=== PATIENT | female | born 1965 | race African-American/Black ===

== ENCOUNTER 2018-02-12 12:53 | Inpatient (IN) | payer BC ==
[2018-02-12 13:56] VITALS: BMI 20.6
--- NOTE | 2018-02-12 20:25 | HP ---
CIWA Score - CIWA Score Nausea/Vomitin-Mild Nausea/No Vomiting Muscle Tremors: None Anxiety: 4-Mod. Anxious/Guarded Agitation: 4-Moderately Restless Paroxysmal Sweats: 3 Orientation: 0-Oriented Tacttile Disturbances: 1-Very Mild Itch/Numbness Auditory Disturbances: 0-None Visual Disturbances: 2-Mild Sensitivity Headache: 2-Mild CIWA-Ar Total Score: 17 Admission ROS S - HPI Chief Complaint: C/O WITHDRAWAL SX'S. SEEKING DETOX FROM ALCOHOL Allergies/Adverse Reactions: Allergies Allergy/AdvReac Type Severity Reaction Status Date / Time Penicillins Allergy Severe Hives Verified 02/12/18 16:20 History of Present Illness: 52 Y.O. FEMLAE WITH ALCOHOLISM AND CANNBIS DEPENDENCE HERE FOR DETOX. CLIENT IS KNOWN TO THIS PROGRAM. LAST HERE 2014. DENIES ANY DETOX SINCE. REPORTS LONGEST CLEAN TIME 10 YEARS. SELF REFERRED. C/O WITHDRAWAL SX'S, CIWA 17. DENIES SOB, C.P., SEIZURE D/O, AVH, PAST/PRESENT SI/HI. PMHX: CHRONIC R HIP PAIN, PSYCH: DENIES Exam Limitations: Physical Impairment (R THUMB SPRAIN) - Ebola screening Have you traveled outside of the country in the last 21 days: No Have you had contact with anyone from an Ebola affected area: No Have you been sick,other than usual withdrawal symptoms: No Do you have a fever: No - Review of Systems Constitutional: Chills, Loss of Appetite, Malaise (R HIP), Night Sweats, Unintentional Wgt. Loss EENT: reports: Dental Problems (MISSING TEETH) Respiratory: reports: No Symptoms reported Cardiac: reports: No Symptoms Reported GI: reports: Nausea, Poor Appetite, Poor Fluid Intake : reports: No Symptoms Reported Musculoskeletal: reports: Joint Pain (R HIP PAIN) Integumentary: reports: No Symptoms Reported Neuro: reports: No Symptoms reported Endocrine: reports: No Symptoms Reported Hematology: reports: No Symptoms Reported Psychiatric: reports: Agitated (IRRITABLE), Depressed Other Systems: Reviewed and Negative Patient History - Patient Medical History Hx Anemia: No Hx Asthma: No Hx Chronic Obstructive Pulmonary Disease (COPD): No Hx Cardiac Disorders: No Hx Hypertension: No HX Cerebrovascular Accident: No Hx Seizures: No Hx Diabetes: No Hx Gastrointestinal Disorders: No Hx Genitourinary Disorders: No Hx Sexually Transmitted Disorders: No Hx Renal Disease (ESRD): No Hx Thyroid Disease: No Hx Human Immunodeficiency Virus (HIV): No Hx Hepatitis C: No Hx Depression: Yes Hx Suicide Attempt: No Hx Schizophrenia: No - Patient Surgical History Past Surgical History: No - PPD History Previous Implant?: Yes Documented Results: Negative w/proof Implanted On Prior [facility] Admission?: Yes Date: 10/08/14 PPD to be Administered?: Yes - Reproductive History Patient is a Female of Child Bearing Age (11 -55 yrs old): Yes LMP comment: [place] [facility] [place] - Smoking Cessation Smoking history: Current every day smoker Have you smoked in the past 12 months: Yes Aproximately how many cigarettes per day: 4 If you are a former smoker, when did you quit?: SINCE 2000 Cigars Per Day: 0 Hx Chewing Tobacco Use: No Initiated information on smoking cessation: Yes 'Breaking Loose' booklet given: 02/12/18 - Substance & Tx. History Hx Alcohol Use: Yes Hx Substance Use: Yes Substance Use Type: Alcohol, Marijuana Hx Substance Use Treatment: Yes ([facility]) - Substances Abused Alcohol Route: Oral Frequency: Daily Amount used: 1 pint wine Age of first use: 13 Date of Last Use: 02/12/18 Marijuana/Hashish Route: Smoking Frequency: Daily Amount used: 3 blunts Age of first use: 9 Date of Last Use: 02/12/18 Family Disease History - Family Disease History Family Disease History: Diabetes: Mother, Other: Father (ALCOHOLISM-) Admission Physical Exam S - Vital Signs Vital Signs: Vital Signs - 24 hr 02/12/18 13:55 Temperature 97.7 F Pulse Rate 94 H Respiratory 18 Rate Blood Pressure 106/65 - Physical General Appearance: Yes: Appropriately Dressed, Mild Distress, Thin, Tremorous ( FELT), Irritable, Anxious HEENTM: Yes: EOMI, Normocephalic, Normal Voice, ZACH, Pharynx Normal, Other ( UPPER DENTURES AND MISSING LOWER TEETH) Respiratory: Yes: Chest Non-Tender, Lungs Clear, Normal Breath Sounds, No Respiratory Distress, No Accessory Muscle Use Neck: Yes: No masses,lesions,Nodules, Supple, Trachea in good position Breast: Yes: Breast Exam Deferred Cardiology: Yes: Regular Rhythm, Regular Rate, S1, S2 Abdominal: Yes: Normal Bowel Sounds, Non Tender, Soft Genitourinary: Yes: Other (NO C/O) Back: Yes: Normal Inspection Musculoskeletal: Yes: full range of Motion, Gait Steady Extremities: Yes: Normal Range of Motion, Non-Tender, Tremors (FELT) Neurological: Yes: store administrator II-XII NML intact, Alert, Depressed Affect Integumentary: Yes: Dry, Warm, Rash (DERMATITIS TO FACE) Lymphatic: Yes: Within Normal Limits - Diagnostic (1) Alcohol dependence with uncomplicated withdrawal Current Visit: Yes Status: Acute (2) Cannabis abuse, uncomplicated Current Visit: Yes Status: Chronic (3) Nicotine dependence Current Visit: Yes Status: Chronic Qualifiers: Nicotine product type: cigarettes Substance use status: uncomplicated Qualified Code(s): F17.210 - Nicotine dependence, cigarettes, uncomplicated (4) Substance induced mood disorder Current Visit: Yes Status: Suspected (5) At risk for dehydration due to poor fluid intake Current Visit: Yes Status: Acute Cleared for Admission [facility] - Detox or Rehab [facility] Level of Care: Medically Managed Detox Regimen/Protocol: Dre [facility]eared for Rehab Admission: No [facility] Breath Alcohol Content Breath Alcohol Content: 0 Urine Pregancy Test - Result Urine Test Results: Negative- NO Line Present Urine Drug Screen - Results Drug Screen Negative: No Urine Drug Screen Results: THC-Marijuana
[2018-02-12] MEDS ORDERED: ACETAMINOPHEN 325 MG TABLET (FP) PO PRN (20:30)
[2018-02-12] MEDS ORDERED: LOPERAMIDE HCL 2 MG CAPSULE PO PRN (20:30)
[2018-02-12] MEDS ORDERED: MENTHOL/PHENOL 1 EACH UD MM PRN (20:30)
[2018-02-12] MEDS ORDERED: MAGNESIUM CITRATE 300 ML BOTTLE PO PRN (20:30)
[2018-02-12] MEDS ORDERED: guaiFENesin/D-METHORPHAN HB 10 ML UNIT-DOSE CUPS PO PRN (20:30)
[2018-02-12] MEDS ORDERED: MAGNESIUM HYDROX 2400MG/30ML ORAL SUSPENSION 30 ML CUP PO PRN (20:30)
[2018-02-12] MEDS ORDERED: MAG HYDROX/AL HYDROX/SIMETH 30 ML UNIT-DOSE CUP PO PRN (20:30)
[2018-02-12] MEDS ORDERED: NICOTINE POLACRILEX 2 MG GUM BC PRN (20:30)
[2018-02-12] MEDS ORDERED: P-EPHED 60MG/TRIPROLIDI 2.5MG TABLET PO PRN (20:30)
[2018-02-12] MEDS ORDERED: IBUPROFEN 400 MG TABLET (FP) PO PRN (20:30)
[2018-02-12] MEDS ORDERED: chlordiazePOXIDE HCL 25 MG CAPSULE PO PRN (20:30)
[2018-02-12] MEDS: chlordiazePOXIDE HCL 25 MG CAPSULE PO SCH (23:36)
[2018-02-12] MEDS: MELATONIN 5 MG TABLETS PO PRN (23:37)
[2018-02-12] MEDS: THIAMINE HCL 100 MG TABLET (FP) PO SCH (23:50)
[2018-02-13] MEDS: chlordiazePOXIDE HCL 25 MG CAPSULE PO SCH ×3 (06:39→23:11)
[2018-02-13] MEDS: NICOTINE 14 MG/24 HOURS TOPICAL PATCH TD SCH (10:55)
[2018-02-13] MEDS: PRENATAL VITAMINS W/ FOLIC ACID TABLET (FP) PO SCH (10:55)
[2018-02-13 10:56] LABS: CHLORIDE 105 mmol/L (98-107); POTASSIUM 4.1 mmol/L (3.5-5.1); SODIUM 142 mmol/L (136-145)
[2018-02-13 11:12] LABS: ALBUMIN 3.9 g/dl (3.4-5.0); ALK PHOS 82 U/L (45-117); ANION GAP 6 MMOL/L (8-16); BILIRUBIN,TOTAL 0.4 mg/dL (0.2-1.0); BLOOD UREA NITROGEN 14 mg/dL (7-18); CALCIUM 8.8 mg/dL (8.5-10.1); CO2 31 mmol/L (21-32); CREATININE 0.8 mg/dL (0.55-1.02); GLUCOSE,RANDOM 83 mg/dL (74-106); SGOT/AST 13 U/L (15-37); SGPT/ALT 16 U/L (12-78); TOT PROT 7.1 g/dl (6.4-8.2)
[2018-02-13 11:47] LABS: HEMATOCRIT 33.5 % (32.4-45.2); HEMOGLOBIN 11.2 GM/dL (10.7-15.3); MCH 29.9 pg (25.7-33.7); MCHC 33.5 g/dl (32.0-36.0); MEAN CELL VOLUME 89.2 fl (80-96); MEAN PLT VOLUME 8.4 fl (7.5-11.1); PLATELET COUNT 280 K/MM3 (134-434); RBC 3.75 M/mm3 (3.60-5.2); RDW 13.3 % (11.6-15.6); WHITE BLOOD COUNT 4.8 K/mm3 (4.0-10.0)
[2018-02-13 13:01] LABS: URINE APPEARANCE SLCLOUDY; URINE BILIRUBIN NEGATIVE (<2.0 mg/dL); URINE COLOR YELLOW; URINE GLUCOSE (UA) NEGATIVE (NEGATIVE); URINE KETONE NEGATIVE (NEGATIVE); URINE LEUK ESTERASE NEGATIVE (NEGATIVE); URINE NITRITE NEGATIVE (NEGATIVE); URINE PROTEIN NEGATIVE (NEGATIVE); URINE UROBILINOGEN NEGATIVE mg/dL (0.2-1.0)
--- NOTE | 2018-02-13 13:47 | EKG ---
Test Reason : Blood Pressure : / mmHG Vent. Rate : 072 BPM Atrial Rate : 072 BPM P-R Int : 146 ms QRS Dur : 086 ms QT Int : 378 ms P-R-T Axes : 065 068 007 degrees QTc Int : 413 ms NORMAL SINUS RHYTHM POSSIBLE LEFT ATRIAL ENLARGEMENT NONSPECIFIC ST AND T WAVE ABNORMALITY ABNORMAL ECG WHEN COMPARED WITH ECG OF 12-FEB-2018 22:57, T WAVE INVERSION LESS EVIDENT IN INFERIOR LEADS NONSPECIFIC T WAVE ABNORMALITY HAS REPLACED INVERTED T WAVES IN ANTEROLATERAL LEADS Confirmed by JERZY GRACIA MD ([id number]) on 02/13/2018 1:47:03 PM Referred By: Confirmed By:JERZY GRACIA MD
--- NOTE | 2018-02-13 13:48 | EKG ---
Test Reason : Blood Pressure : / mmHG Vent. Rate : 066 BPM Atrial Rate : 066 BPM P-R Int : 140 ms QRS Dur : 080 ms QT Int : 410 ms P-R-T Axes : 065 067 -25 degrees QTc Int : 429 ms NORMAL SINUS RHYTHM POSSIBLE LEFT ATRIAL ENLARGEMENT T WAVE ABNORMALITY, CONSIDER INFERIOR ISCHEMIA T WAVE ABNORMALITY, CONSIDER ANTEROLATERAL ISCHEMIA ABNORMAL ECG NO PREVIOUS ECGS AVAILABLE Confirmed by BASIL LIMON, JERZY ([id number]) on 02/13/2018 1:47:59 PM Referred By: Confirmed By:JERZY GRACIA MD
[2018-02-13] MEDS: THIAMINE HCL 100 MG TABLET (FP) PO SCH (23:11)
[2018-02-13] MEDS: hydrOXYzine PAMOATE 50 MG CAPSULE (FP) PO PRN (23:12)
--- NOTE | 2018-02-13 23:21 | PN ---
S CIWA - CIWA Score Nausea/Vomitin-Mild Nausea/No Vomiting Muscle Tremors: 4-Moderate,w/Arms Extend Anxiety: 1-Mildly Anxious Agitation: 1-Slight > Activity Paroxysmal Sweats: No Perspiration Orientation: 0-Oriented Tacttile Disturbances: 0-None Auditory Disturbances: 0-None Visual Disturbances: 0-None Headache: 0-None Present CIWA-Ar Total Score: 7 [facility] Progress Note (SOAP) Subjective: c/o nausea w/o vomiting, feeling very anxious and shaky. Objective: A & ) x 3. (+) tremors. Vital Signs - 24 hr 02/13/18 02/13/18 02/13/18 00:06 00:30 03:30 Temperature 97.3 F L Pulse Rate 73 Respiratory 18 18 18 Rate Blood Pressure 117/64 02/13/18 02/13/18 02/13/18 08:43 08:59 14:08 Temperature 96.8 F L 98.2 F 98.1 F Pulse Rate 64 71 79 Respiratory 18 18 18 Rate Blood Pressure 115/69 102/61 122/64 02/13/18 02/13/18 17:45 22:44 Temperature 97.7 F 97.7 F Pulse Rate 66 68 Respiratory 18 18 Rate Blood Pressure 107/50 96/67 Laboratory Last Values WBC 4.8 K/mm3 (4.0-10.0) 02/13/18 06:00 RBC 3.75 M/mm3 (3.60-5.2) 02/13/18 06:00 Hgb 11.2 GM/dL (10.7-15.3) 02/13/18 06:00 Hct 33.5 % (32.4-45.2) 02/13/18 06:00 MCV 89.2 fl (80-96) 02/13/18 06:00 MCH 29.9 pg (25.7-33.7) 02/13/18 06:00 MCHC 33.5 g/dl (32.0-36.0) 02/13/18 06:00 RDW 13.3 % (11.6-15.6) 02/13/18 06:00 Plt Count 280 K/MM3 (134-434) D 02/13/18 06:00 MPV 8.4 fl (7.5-11.1) 02/13/18 06:00 Sodium 142 mmol/L (136-145) 02/13/18 06:00 Potassium 4.1 mmol/L (3.5-5.1) 02/13/18 06:00 Chloride 105 mmol/L (98-107) 02/13/18 06:00 Carbon Dioxide 31 mmol/L (21-32) 02/13/18 06:00 Anion Gap 6 MMOL/L (8-16) L 02/13/18 06:00 BUN 14 mg/dL (7-18) 02/13/18 06:00 Creatinine 0.8 mg/dL (0.55-1.02) 02/13/18 06:00 Creat Clearance w eGFR > 60 (>60) 02/13/18 06:00 Random Glucose 83 mg/dL (74-106) 02/13/18 06:00 Calcium 8.8 mg/dL (8.5-10.1) 02/13/18 06:00 Total Bilirubin 0.4 mg/dL (0.2-1.0) 02/13/18 06:00 AST 13 U/L (15-37) L 02/13/18 06:00 ALT 16 U/L (12-78) 02/13/18 06:00 Alkaline Phosphatase 82 U/L (45-117) 02/13/18 06:00 Total Protein 7.1 g/dl (6.4-8.2) 02/13/18 06:00 Albumin 3.9 g/dl (3.4-5.0) 02/13/18 06:00 Urine Color Yellow 02/13/18 11:25 Urine Appearance Slcloudy 02/13/18 11:25 Urine pH 5.0 (5.0-8.0) 02/13/18 11:25 Ur Specific [place] 1.014 (1.001-1.035) 02/13/18 11:25 Urine Protein Negative (NEGATIVE) 02/13/18 11:25 Urine Glucose (UA) Negative (NEGATIVE) 02/13/18 11:25 Urine Ketones Negative (NEGATIVE) 02/13/18 11:25 Urine Blood Negative (NEGATIVE) 02/13/18 11:25 Urine Nitrite Negative (NEGATIVE) 02/13/18 11:25 Urine Bilirubin Negative (<2.0 mg/dL) 09/06/18 11:25 Urine Urobilinogen Negative mg/dL (0.2-1.0) 02/13/18 11:25 Ur Leukocyte Esterase Negative (NEGATIVE) 02/13/18 11:25 Labs reviewed. Assessment: Alcohol withdrawal symptoms. Plan: Continue detox
[2018-02-14] MEDS: chlordiazePOXIDE HCL 25 MG CAPSULE PO SCH ×4 (00:15→17:47)
[2018-02-14] MEDS: PRENATAL VITAMINS W/ FOLIC ACID TABLET (FP) PO SCH (10:33)
[2018-02-14] MEDS: NICOTINE 14 MG/24 HOURS TOPICAL PATCH TD SCH (10:34)
--- NOTE | 2018-02-14 18:24 | PN ---
[facility] CIWA - CIWA Score Nausea/Vomitin-Mild Nausea/No Vomiting Muscle Tremors: 4-Moderate,w/Arms Extend Anxiety: 1-Mildly Anxious Agitation: 1-Slight > Activity Paroxysmal Sweats: No Perspiration Orientation: 0-Oriented Tacttile Disturbances: 0-None Auditory Disturbances: 0-None Visual Disturbances: 0-None Headache: 0-None Present CIWA-Ar Total Score: 7 S Progress Note (SOAP) Subjective: States feels stressed and anxious. Doesn't feel like talking. Denies nausea. Objective: A&O x3. Tremors of hands noted. Shaking legs while seated. Gait steady. Not receptive to conversation. Vital Signs 02/14/18 02/14/18 13:44 17:30 Temperature 97.9 F 96.6 F L Pulse Rate 67 75 Respiratory 18 18 Rate Blood Pressure 107/62 115/72 Laboratory Last Values WBC 4.8 K/mm3 (4.0-10.0) 02/13/18 06:00 RBC 3.75 M/mm3 (3.60-5.2) 02/13/18 06:00 Hgb 11.2 GM/dL (10.7-15.3) 02/13/18 06:00 Hct 33.5 % (32.4-45.2) 02/13/18 06:00 MCV 89.2 fl (80-96) 02/13/18 06:00 MCH 29.9 pg (25.7-33.7) 02/13/18 06:00 MCHC 33.5 g/dl (32.0-36.0) 02/13/18 06:00 RDW 13.3 % (11.6-15.6) 02/13/18 06:00 Plt Count 280 K/MM3 (134-434) D 02/13/18 06:00 MPV 8.4 fl (7.5-11.1) 02/13/18 06:00 Sodium 142 mmol/L (136-145) 02/13/18 06:00 Potassium 4.1 mmol/L (3.5-5.1) 02/13/18 06:00 Chloride 105 mmol/L (98-107) 02/13/18 06:00 Carbon Dioxide 31 mmol/L (21-32) 02/13/18 06:00 Anion Gap 6 MMOL/L (8-16) L 02/13/18 06:00 BUN 14 mg/dL (7-18) 02/13/18 06:00 Creatinine 0.8 mg/dL (0.55-1.02) 02/13/18 06:00 Creat Clearance w eGFR > 60 (>60) 02/13/18 06:00 Random Glucose 83 mg/dL (74-106) 02/13/18 06:00 Calcium 8.8 mg/dL (8.5-10.1) 02/13/18 06:00 Total Bilirubin 0.4 mg/dL (0.2-1.0) 02/13/18 06:00 AST 13 U/L (15-37) L 02/13/18 06:00 ALT 16 U/L (12-78) 02/13/18 06:00 Alkaline Phosphatase 82 U/L (45-117) 02/13/18 06:00 Total Protein 7.1 g/dl (6.4-8.2) 02/13/18 06:00 Albumin 3.9 g/dl (3.4-5.0) 02/13/18 06:00 Urine Color Yellow 02/13/18 11:25 Urine Appearance Slcloudy 02/13/18 11:25 Urine pH 5.0 (5.0-8.0) 02/13/18 11:25 Ur Specific [place] 1.014 (1.001-1.035) 02/13/18 11:25 Urine Protein Negative (NEGATIVE) 02/13/18 11:25 Urine Glucose (UA) Negative (NEGATIVE) 02/13/18 11:25 Urine Ketones Negative (NEGATIVE) 02/13/18 11:25 Urine Blood Negative (NEGATIVE) 02/13/18 11:25 Urine Nitrite Negative (NEGATIVE) 02/13/18 11:25 Urine Bilirubin Negative (<2.0 mg/dL) 02/13/18 11:25 Urine Urobilinogen Negative mg/dL (0.2-1.0) 02/13/18 11:25 Ur Leukocyte Esterase Negative (NEGATIVE) 02/13/18 11:25 RPR Titer Nonreactive (NONREACTIVE) 02/13/18 06:00 02/14/18 18:22 Labs reviewed. Assessment: Withdrawal symptoms. Plan: [facility] detox.
[2018-02-14] MEDS: chlordiazePOXIDE 5 MG CAPSULE PO SCH (22:26)
[2018-02-14] MEDS: THIAMINE HCL 100 MG TABLET (FP) PO SCH (22:26)
[2018-02-14] MEDS: MELATONIN 5 MG TABLETS PO PRN (22:26)
[2018-02-15] MEDS: chlordiazePOXIDE 5 MG CAPSULE PO SCH ×3 (05:32→22:52)
--- NOTE | 2018-02-15 10:09 | PN ---
[facility] CIWA - CIWA Score Nausea/Vomitin-No Nausea/No Vomiting Muscle Tremors: 1-None Visible, but [place] Anxiety: 3 Agitation: 4-Moderately Restless Paroxysmal Sweats: 2 Orientation: 0-Oriented Tacttile Disturbances: 2-Mild Itch/Numbness/Burn Auditory Disturbances: 0-None Visual Disturbances: 0-None Headache: 0-None Present CIWA-Ar Total Score: 12 B[facility] Progress Note (SOAP) Subjective: C/O itchy skin, anxious, interrupted sleep Objective: 02/15/18 10:09 Vital Signs Temperature 98.2 F 02/15/18 09:54 Pulse Rate 77 02/15/18 09:54 Respiratory Rate 18 02/15/18 09:54 Blood Pressure 107/65 02/15/18 09:54 O2 Sat by Pulse Oximetry (%) Laboratory Last Values WBC 4.8 K/mm3 (4.0-10.0) 02/13/18 06:00 RBC 3.75 M/mm3 (3.60-5.2) 02/13/18 06:00 Hgb 11.2 GM/dL (10.7-15.3) 02/13/18 06:00 Hct 33.5 % (32.4-45.2) 02/13/18 06:00 MCV 89.2 fl (80-96) 02/13/18 06:00 MCH 29.9 pg (25.7-33.7) 02/13/18 06:00 MCHC 33.5 g/dl (32.0-36.0) 02/13/18 06:00 RDW 13.3 % (11.6-15.6) 02/13/18 06:00 Plt Count 280 K/MM3 (134-434) D 02/13/18 06:00 MPV 8.4 fl (7.5-11.1) 02/13/18 06:00 Sodium 142 mmol/L (136-145) 02/13/18 06:00 Potassium 4.1 mmol/L (3.5-5.1) 02/13/18 06:00 Chloride 105 mmol/L (98-107) 02/13/18 06:00 Carbon Dioxide 31 mmol/L (21-32) 02/13/18 06:00 Anion Gap 6 MMOL/L (8-16) L 02/13/18 06:00 BUN 14 mg/dL (7-18) 02/13/18 06:00 Creatinine 0.8 mg/dL (0.55-1.02) 02/13/18 06:00 Creat Clearance w eGFR > 60 (>60) 02/13/18 06:00 Random Glucose 83 mg/dL (74-106) 02/13/18 06:00 Calcium 8.8 mg/dL (8.5-10.1) 02/13/18 06:00 Total Bilirubin 0.4 mg/dL (0.2-1.0) 02/13/18 06:00 AST 13 U/L (15-37) L 02/13/18 06:00 ALT 16 U/L (12-78) 02/13/18 06:00 Alkaline Phosphatase 82 U/L (45-117) 02/13/18 06:00 Total Protein 7.1 g/dl (6.4-8.2) 02/13/18 06:00 Albumin 3.9 g/dl (3.4-5.0) 02/13/18 06:00 Urine Color Yellow 02/13/18 11:25 Urine Appearance Slcloudy 02/13/18 11:25 Urine pH 5.0 (5.0-8.0) 02/13/18 11:25 Ur Specific [place] 1.014 (1.001-1.035) 02/13/18 11:25 Urine Protein Negative (NEGATIVE) 02/13/18 11:25 Urine Glucose (UA) Negative (NEGATIVE) 02/13/18 11:25 Urine Ketones Negative (NEGATIVE) 02/13/18 11:25 Urine Blood Negative (NEGATIVE) 02/13/18 11:25 Urine Nitrite Negative (NEGATIVE) 02/13/18 11:25 Urine Bilirubin Negative (<2.0 mg/dL) 02/13/18 11:25 Urine Urobilinogen Negative mg/dL (0.2-1.0) 02/13/18 11:25 Ur Leukocyte Esterase Negative (NEGATIVE) 02/13/18 11:25 RPR Titer Nonreactive (NONREACTIVE) 02/13/18 06:00 Assessment: 02/15/18 14:13 withdrawal symptoms Plan: increase po fluids TP hydrocortisone continue detox continue to monitor
[2018-02-15] MEDS ORDERED: COLLOIDAL OATMEAL 1 BAR EACH TP PRN (10:16)
[2018-02-15] MEDS ORDERED: HYDROCORTISONE 1% TOPICAL LOTION 118 ML BOTTLE TP PRN (10:25)
[2018-02-15] MEDS: PRENATAL VITAMINS W/ FOLIC ACID TABLET (FP) PO SCH (10:48)
[2018-02-15] MEDS: NICOTINE 14 MG/24 HOURS TOPICAL PATCH TD SCH (10:49)
[2018-02-15] MEDS: MELATONIN 5 MG TABLETS PO PRN (22:54)
[2018-02-15] MEDS: chlordiazePOXIDE HCL 10 MG CAPSULE PO SCH (22:54)
[2018-02-15] MEDS: THIAMINE HCL 100 MG TABLET (FP) PO SCH (22:54)
[2018-02-15] MEDS: hydrOXYzine PAMOATE 50 MG CAPSULE (FP) PO PRN (22:54)
[2018-02-16] MEDS: VITAMINS A AND D TOPICAL OINTMENT 60 GM TUBE TP SCH ×2 (01:02→10:50)
[2018-02-16] MEDS: chlordiazePOXIDE HCL 10 MG CAPSULE PO SCH ×2 (05:39→10:50)
--- NOTE | 2018-02-16 09:30 | DS ---
[facility] Detox Discharge Summary Admission Date: 02/12/18 Discharge Date: 02/16/18 - History Present History: Alcohol Dependence Additional Comments: 52 years old female admitted on 02/12/18 for alcohol withdrawal sx completed alcohol detox regimen tolerated well denies alcohol withdrawal sx alert oriented x 3 no acute distress [facility] Pertinent Past History: reported longest sobriety 15 years went to [facility] and three other rehab - Physical Exam Results Vital Signs: Vital Signs Temperature 97.7 F 02/16/18 06:00 Pulse Rate 77 02/16/18 06:00 Respiratory Rate 18 02/16/18 06:00 Blood Pressure 94/60 02/16/18 06:00 O2 Sat by Pulse Oximetry (%) Pertinent Admission Physical Exam Findings: alcohol withdrawal sx Vital Signs Temperature 96.4 F L 02/16/18 09:39 Pulse Rate 86 02/16/18 09:39 Respiratory Rate 18 02/16/18 09:39 Blood Pressure 103/60 02/16/18 09:39 O2 Sat by Pulse Oximetry (%) Laboratory Last Values WBC 4.8 K/mm3 (4.0-10.0) 02/13/18 06:00 RBC 3.75 M/mm3 (3.60-5.2) 02/13/18 06:00 Hgb 11.2 GM/dL (10.7-15.3) 02/13/18 06:00 Hct 33.5 % (32.4-45.2) 02/13/18 06:00 MCV 89.2 fl (80-96) 02/13/18 06:00 MCH 29.9 pg (25.7-33.7) 02/13/18 06:00 MCHC 33.5 g/dl (32.0-36.0) 02/13/18 06:00 RDW 13.3 % (11.6-15.6) 02/13/18 06:00 Plt Count 280 K/MM3 (134-434) D 02/13/18 06:00 MPV 8.4 fl (7.5-11.1) 02/13/18 06:00 Sodium 142 mmol/L (136-145) 02/13/18 06:00 Potassium 4.1 mmol/L (3.5-5.1) 02/13/18 06:00 Chloride 105 mmol/L (98-107) 02/13/18 06:00 Carbon Dioxide 31 mmol/L (21-32) 02/13/18 06:00 Anion Gap 6 MMOL/L (8-16) L 02/13/18 06:00 BUN 14 mg/dL (7-18) 02/13/18 06:00 Creatinine 0.8 mg/dL (0.55-1.02) 02/13/18 06:00 Creat Clearance w eGFR > 60 (>60) 02/13/18 06:00 Random Glucose 83 mg/dL (74-106) 02/13/18 06:00 Calcium 8.8 mg/dL (8.5-10.1) 02/13/18 06:00 Total Bilirubin 0.4 mg/dL (0.2-1.0) 02/13/18 06:00 AST 13 U/L (15-37) L 02/13/18 06:00 ALT 16 U/L (12-78) 02/13/18 06:00 Alkaline Phosphatase 82 U/L (45-117) 02/13/18 06:00 Total Protein 7.1 g/dl (6.4-8.2) 02/13/18 06:00 Albumin 3.9 g/dl (3.4-5.0) 02/13/18 06:00 Urine Color Yellow 02/13/18 11:25 Urine Appearance Slcloudy 02/13/18 11:25 Urine pH 5.0 (5.0-8.0) 02/13/18 11:25 Ur Specific [place] 1.014 (1.001-1.035) 02/13/18 11:25 Urine Protein Negative (NEGATIVE) 02/13/18 11:25 Urine Glucose (UA) Negative (NEGATIVE) 02/13/18 11:25 Urine Ketones Negative (NEGATIVE) 02/13/18 11:25 Urine Blood Negative (NEGATIVE) 02/13/18 11:25 Urine Nitrite Negative (NEGATIVE) 02/13/18 11:25 Urine Bilirubin Negative (<2.0 mg/dL) 02/13/18 11:25 Urine Urobilinogen Negative mg/dL (0.2-1.0) 02/13/18 11:25 Ur Leukocyte Esterase Negative (NEGATIVE) 02/13/18 11:25 RPR Titer Nonreactive (NONREACTIVE) 02/13/18 06:00 lab noted - Treatment Hospital Course: Detox Protocol Followed, Detoxed Safely, Responded well, Discharged Condition Good, Rehab Referral Accepted Patient has Accepted a Rehab Referral to: [facility] - Medication Discharge Medications: Ambulatory Orders NK [No Known Home Medication] 10/06/14 - Diagnosis (1) Alcohol dependence with uncomplicated withdrawal Current Visit: Yes Status: Acute (2) Nicotine dependence Current Visit: Yes Status: Acute Qualifiers: Nicotine product type: cigarettes Substance use status: in withdrawal Qualified Code(s): F17.213 - Nicotine dependence, cigarettes, with withdrawal (3) Substance induced mood disorder Current Visit: Yes Status: Suspected - AMA Did Patient Leave Against Medical Advice: No
[2018-02-16 09:40] VITALS: BP 103/60; PULSE 86; TEMP 96.4
[2018-02-16] MEDS: NICOTINE 14 MG/24 HOURS TOPICAL PATCH TD SCH (10:50)
[2018-02-16] MEDS: PRENATAL VITAMINS W/ FOLIC ACID TABLET (FP) PO SCH (10:50)
== END 2018-02-16 12:50 | disposition home or self-care (01) | DRG 897 ==
LOC: YASAS 12:53 → Y6N 17:25
PROC: HZ2ZZZZ Detoxification Services for Substance Abuse Treatment (ICD-10-PCS; principal; 2018-02-12)
DX: F10.230 Alcohol dependence with withdrawal, uncomplicated (principal); F17.210 Nicotine dependence, cigarettes, uncomplicated; F12.10 Cannabis abuse, uncomplicated; F19.24 Other psychoactive substance dependence with psychoactive substance-induced mood disorder; L29.8 Other pruritus; Z91.89 Other specified personal risk factors, not elsewhere classified; Z88.0 Allergy status to penicillin
CPT/HCPCS: 36415; 80053; 81003; 85027; 86593; 93005; 93010